=== PATIENT | female | born 1965 | race African-American/Black ===

== ENCOUNTER 2019-04-14 12:50 | Inpatient (IN) | payer MEDICARE, MEDICAID ==
[~2019-04-14] VITALS: Ht 182.9 cm; Wt 140.6 kg
[2019-04-14 08:00] VITALS: BP 93/49
[~2019-04-14 12:50] MED LIST: ATAZ300C PO; EMTR1TAB11 PO; FLUO40CA8 PO; HYDR-519 PO; RITO100T PO
[2019-04-14 21:00] VITALS: BP 120/70
[2019-04-14] MEDS ORDERED: CLONIDINE 0.1MG TABLET PO PRN (21:30)
[2019-04-14] MEDS ORDERED: NITROGLYCERIN 0.4MG TABLET SL SL PRN (21:30)
[2019-04-14] MEDS ORDERED: DOCUSATE SODIUM 100MG CAPSULE PO PRN (21:30)
[2019-04-14] MEDS ORDERED: ENOXAPARIN 40MG/0.4ML SYR SUBCUT SCH (21:30)
[2019-04-14] MEDS ORDERED: MAGNESIUM/ALUMINUM HYDROXIDE/SIMETHICONE 30ML UDC PO PRN (21:30)
[2019-04-14] MEDS ORDERED: IPRATROPIUM/ALBUTEROL 0.5-3(2.5)MG/3ML NEB NEB PRN (21:30)
[2019-04-14] MEDS ORDERED: ZOLPIDEM TARTRATE 5MG TABLET PO PRN (21:30)
[2019-04-14] MEDS ORDERED: DIPHENHYDRAMINE 50MG/ML VIAL IV PRN (21:30)
[2019-04-14] MEDS ORDERED: ONDANSETRON HCL 4MG/2ML INJ IV PRN (21:30)
[2019-04-14] MEDS ORDERED: GUAIFENESIN 200MG/10ML SUGAR FREE UDC PO PRN (21:30)
[2019-04-14] MEDS ORDERED: AMIN30LI2 PO (21:38)
[2019-04-14] MEDS ORDERED: GABA-529 MT (21:38)
[2019-04-14] MEDS ORDERED: DOCU-138 PO (21:38)
[2019-04-14] MEDS ORDERED: METH10OR PO (21:38)
[2019-04-14] MEDS ORDERED: SULF1TAB47 PO (21:38)
[2019-04-14] MEDS ORDERED: TIZA4CAP6 MT (21:38)
[2019-04-14] MEDS ORDERED: SENN-170 MT (21:38)
[2019-04-14] MEDS ORDERED: FURO20TA4 MT (21:38)
[2019-04-14] MEDS ORDERED: ASCO-339 MT (21:38)
[2019-04-14] MEDS ORDERED: TOPUD MT (21:38)
[2019-04-14] MEDS ORDERED: MULT-379 PO (21:38)
[2019-04-14] MEDS ORDERED: CITA10SO PO (21:38)
[2019-04-14] MEDS ORDERED: B25 PO (21:38)
[2019-04-14] MEDS: TRAMADOL 50MG TABLET PO PRN (23:39)
[2019-04-15] VITALS: BP 94/58
[2019-04-15] MEDS: HYDROCODONE/ACETAMINOPHEN 10/325MG TABLET PO PRN ×3 (01:13→17:57)
[2019-04-15 04:00] VITALS: BP 129/86
[2019-04-15] MEDS: TRAMADOL 50MG TABLET PO PRN ×2 (06:09→22:49)
[2019-04-15 07:11] LABS: BASOPHILS % 0.4 % (0.0-2.0); HEMATOCRIT. 28.3 % (36.0-48.0); HEMOGLOBIN. 8.9 g/dL (12.0-16.0); LYMPHOCYTES % 9.2 % (20.0-50.0); MEAN CORPUSCULAR HEMOGLOBIN 28.8 pg (28.0-32.0); MEAN CORPUSCULAR VOLUME 91.4 fL (81.0-99.0); MEAN PLATELET VOLUME 7.7 fl (7.4-10.4); MONOCYTES % 7.3 % (2.0-8.0); NEUTROPHILS % 82.1 % (40.0-76.0); PLATELET 427 x1000/uL (130-400)
[2019-04-15 07:25] LABS: CHLORIDE 117 mEq/L (98-107)
[2019-04-15 08:00] VITALS: BP 98/50
[2019-04-15] MEDS: FAMOTIDINE 20MG TABLET PO SCH ×2 (08:23→21:58)
[2019-04-15] MEDS: ASCORBIC ACID 500 MG TABLET PO SCH ×2 (08:23→21:58)
[2019-04-15] MEDS: FLUOXETINE HCL 20MG CAPSULE PO SCH (08:23)
[2019-04-15] MEDS: RITONAVIR 100 MG TABLET PO SCH (08:24)
[2019-04-15] MEDS: ZINC SULFATE 220 MG ( 50 ) CAPSULE PO SCH (08:24)
[2019-04-15] MEDS: EMTRICITABINE 200MG CAPSULE PO SCH (08:24)
[2019-04-15] MEDS: TENOFOVIR 300MG TABLET PO SCH (08:24)
[2019-04-15] MEDS: ATAZANAVIR SULFATE 150MG CAPSULE PO SCH (08:24)
[2019-04-15] MEDS: ENOXAPARIN 40MG/0.4ML SYR SUBCUT SCH ×2 (10:00→21:00)
[2019-04-15] MEDS ORDERED: CEFEPIME 1,000 MG in DEXTROSE 5% WATER 50 ML IV SCH (11:00)
[2019-04-15] MEDS ORDERED: LINEZOLID 600 MG PREMIX 300 ML IV SCH (11:00)
[2019-04-15 11:08] LABS: *AMPHETAMINES SCREEN URINE NEGATIVE (NEGATIVE); *BARBITURATES SCREEN URINE NEGATIVE (NEGATIVE); *BENZODIAZEPINES SCREEN URINE NEGATIVE (NEGATIVE); *COCAINE SCREEN URINE PRESUMTIVE POSITIVE (NEGATIVE); OPIATES URINE SCREEN PRESUMTIVE POSITIVE (NEGATIVE)
[2019-04-15 11:09] LABS: CANNABINOID URINE SCREEN PRESUMTIVE POSITIVE (NEGATIVE); PHENCYCLIDINE URINE SCREEN NEGATIVE (NEGATIVE)
[2019-04-15 11:14] LABS: METHADONE URINE SCREEN PRESUMTIVE POSITIVE (NEGATIVE)
[2019-04-15 11:43] LABS: CLARITY URINE CLOUDY (CLEAR); COLOR URINE YELLOW (YELLOW); KETONES URINE NEGATIVE (NEGATIVE); LEUKOCYTE ESTERASE URINE 1+ (NEGATIVE); NITRITE URINE NEGATIVE (NEGATIVE); OCCULT BLOOD URINE 2+ (NEGATIVE); PH URINE 6.5 (4.5-8.0); PROTEIN URINE 1+ (NEGATIVE); SPECIFIC GRAVITY URINE 1.018 (1.005-1.030); UROBILINOGEN URINE 0.2 E.U./dL (0.2-1.0)
[2019-04-15 12:00] VITALS: BP 112/54
[2019-04-15] MEDS ORDERED: METRONIDAZOLE 500 MG PREMIX 100 ML IV SCH ×2 (14:00→19:00)
[2019-04-15 16:00] VITALS: BP 141/71
[2019-04-15] MEDS: CEFEPIME 1,000 MG in DEXTROSE 5% WATER 50 ML IV SCH (16:00)
[2019-04-15] MEDS: ACETAMINOPHEN 325MG TABLET PO PRN (16:35)
[2019-04-15] MEDS ORDERED: SODIUM HYPOCHLORITE 0.125% 473ML SOLUTION TOP SCH (17:00)
[2019-04-15] MEDS: LINEZOLID 600 MG PREMIX 300 ML IV SCH (17:56)
[2019-04-15] MEDS: MORPHINE SULFATE 2 MG/ML CPJ (NOT FOR IM USE) IV PRN (18:33)
[2019-04-15 19:06] LABS: T4 FREE 0.87 ng/dL (0.76-1.46)
[2019-04-15 20:00] VITALS: BP 139/78
[2019-04-15] MEDS: METRONIDAZOLE 500 MG PREMIX 100 ML IV SCH (21:58)
[2019-04-15] MEDS: SODIUM HYPOCHLORITE 0.125% 473ML SOLUTION TOP SCH (21:58)
[2019-04-16] VITALS: BP 132/73
[2019-04-16] MEDS: MORPHINE SULFATE 2 MG/ML CPJ (NOT FOR IM USE) IV PRN ×4 (01:24→21:33)
[2019-04-16 04:00] VITALS: BP 130/70
[2019-04-16] MEDS: CEFEPIME 1,000 MG in DEXTROSE 5% WATER 50 ML IV SCH ×2 (04:00→16:25)
[2019-04-16] MEDS: LINEZOLID 600 MG PREMIX 300 ML IV SCH ×2 (05:00→18:13)
[2019-04-16] MEDS: METRONIDAZOLE 500 MG PREMIX 100 ML IV SCH ×3 (05:13→21:34)
[2019-04-16 08:00] VITALS: BP 105/76
[2019-04-16] MEDS ORDERED: SODIUM BICARBONATE 4% (2.4MEQ) 5ML VIAL IV ONE (08:07)
[2019-04-16] MEDS ORDERED: LIDOCAINE HCL 1% 20ML VIAL (Pyxis) INJ ONE (08:07)
[2019-04-16] MEDS: TENOFOVIR 300MG TABLET PO SCH (09:00)
[2019-04-16] MEDS: ENOXAPARIN 40MG/0.4ML SYR SUBCUT SCH ×3 (09:00→20:43)
[2019-04-16] MEDS: ZINC SULFATE 220 MG ( 50 ) CAPSULE PO SCH (10:18)
[2019-04-16] MEDS: ASCORBIC ACID 500 MG TABLET PO SCH ×2 (10:18→20:46)
[2019-04-16] MEDS: EMTRICITABINE 200MG CAPSULE PO SCH (10:19)
[2019-04-16] MEDS: FLUOXETINE HCL 20MG CAPSULE PO SCH (10:19)
[2019-04-16] MEDS: FAMOTIDINE 20MG TABLET PO SCH ×2 (10:20→20:46)
[2019-04-16] MEDS: RITONAVIR 100 MG TABLET PO SCH (10:24)
[2019-04-16] MEDS: ATAZANAVIR SULFATE 150MG CAPSULE PO SCH (10:24)
[2019-04-16 12:00] VITALS: BP 106/63
[2019-04-16] MEDS: SODIUM HYPOCHLORITE 0.125% 473ML SOLUTION TOP SCH ×3 (12:51→20:44)
[2019-04-16 16:00] VITALS: BP 116/84
[2019-04-16 20:00] VITALS: BP 108/62
[2019-04-16] MEDS: ACETAMINOPHEN 325MG TABLET PO PRN (20:45)
[2019-04-17] VITALS: BP 98/66
[2019-04-17] MEDS: CEFEPIME 1,000 MG in DEXTROSE 5% WATER 50 ML IV SCH ×2 (03:41→16:50)
[2019-04-17 04:00] VITALS: BP 121/87
[2019-04-17] MEDS: LINEZOLID 600 MG PREMIX 300 ML IV SCH ×2 (04:35→16:50)
[2019-04-17] MEDS: MORPHINE SULFATE 2 MG/ML CPJ (NOT FOR IM USE) IV PRN ×3 (05:53→18:43)
[2019-04-17] MEDS: METRONIDAZOLE 500 MG PREMIX 100 ML IV SCH ×3 (06:33→22:30)
[2019-04-17 08:00] VITALS: BP 111/75
[2019-04-17] MEDS: ZINC SULFATE 220 MG ( 50 ) CAPSULE PO SCH (08:37)
[2019-04-17] MEDS: FLUOXETINE HCL 20MG CAPSULE PO SCH (08:37)
[2019-04-17] MEDS: ASCORBIC ACID 500 MG TABLET PO SCH ×2 (08:37→22:28)
[2019-04-17] MEDS: ATAZANAVIR SULFATE 150MG CAPSULE PO SCH (08:38)
[2019-04-17] MEDS: EMTRICITABINE 200MG CAPSULE PO SCH (08:38)
[2019-04-17] MEDS: FAMOTIDINE 20MG TABLET PO SCH ×2 (08:38→22:29)
[2019-04-17] MEDS: RITONAVIR 100 MG TABLET PO SCH (08:38)
[2019-04-17] MEDS: TENOFOVIR 300MG TABLET PO SCH (08:40)
[2019-04-17] MEDS: ENOXAPARIN 40MG/0.4ML SYR SUBCUT SCH ×2 (08:40→22:30)
[2019-04-17] MEDS: SODIUM HYPOCHLORITE 0.125% 473ML SOLUTION TOP SCH ×3 (08:40→23:21)
[2019-04-17] MEDS ORDERED: BUPIVACAINE HCL/PF 0.5% (5MG/ML) 10ML ONE (10:59)
[2019-04-17] MEDS ORDERED: BACITRACIN 50,000 UNITS/VIAL ONE (10:59)
[2019-04-17] MEDS ORDERED: NORMAL SALINE 0.9% 10 ML SYR ONE (10:59)
[2019-04-17] MEDS ORDERED: LIDOCAINE HCL 1% 20ML VIAL (Pyxis) INJ ONE ×2 (10:59→11:25)
[2019-04-17] MEDS ORDERED: FENTANYL CITRATE/PF 50MCG/ML 2ML VIAL ONE ×3 (11:09→12:25)
[2019-04-17] MEDS ORDERED: MIDAZOLAM HCL 2 MG/2 ML VIAL ONE (11:10)
[2019-04-17] MEDS ORDERED: ROPIVACAINE HCL 10MG/ML 20 ML VIAL EPI ONE (11:24)
[2019-04-17] MEDS ORDERED: CLINDAMYCIN 900 MG PREMIX 50 ML IV SCH (11:45)
[2019-04-17 12:00] VITALS: BP 120/69
[2019-04-17] MEDS ORDERED: PROPOFOL 200MG/20ML VIAL IV ONE (12:16)
[2019-04-17] MEDS: HYDROMORPHONE HCL/PF 2MG/ML CPJ IV PRN ×4 (13:21→13:51)
[2019-04-17] MEDS ORDERED: HYDROMORPHONE HCL/PF 2MG/ML CPJ ONE (13:21)
[2019-04-17] MEDS ORDERED: DIPHENHYDRAMINE 50MG/ML VIAL ONE (13:29)
[2019-04-17] MEDS ORDERED: ONDANSETRON HCL 4MG/2ML INJ IV PRN (13:30)
[2019-04-17] MEDS ORDERED: MEPERIDINE HCL/PF 25MG/ML CPJ IV PRN (13:30)
[2019-04-17] MEDS ORDERED: METOCLOPRAMIDE HCL 10MG/2ML VIAL IV PRN (13:30)
[2019-04-17] MEDS ORDERED: DIPHENHYDRAMINE 50MG/ML VIAL IV ONE (13:30)
[2019-04-17] MEDS: LORAZEPAM 0.5MG TABLET PO PRN (14:55)
[2019-04-17 16:00] VITALS: BP 108/70
[2019-04-17 20:00] VITALS: BP 108/63
[2019-04-18] VITALS: BP 102/57
[2019-04-18 04:00] VITALS: BP 97/61
[2019-04-18] MEDS: CEFEPIME 1,000 MG in DEXTROSE 5% WATER 50 ML IV SCH (04:06)
[2019-04-18] MEDS: LINEZOLID 600 MG PREMIX 300 ML IV SCH (06:08)
[2019-04-18] MEDS: METRONIDAZOLE 500 MG PREMIX 100 ML IV SCH (06:42)
[2019-04-18] MEDS: ENOXAPARIN 40MG/0.4ML SYR SUBCUT SCH ×2 (09:00→20:59)
[2019-04-18] MEDS: SODIUM HYPOCHLORITE 0.125% 473ML SOLUTION TOP SCH ×3 (09:00→21:08)
[2019-04-18] MEDS: TENOFOVIR 300MG TABLET PO SCH (09:00)
[2019-04-18 09:06] LABS: ABSOLUTE EOSINOPHILS 0.4 x10E3/uL (0.0-0.4); ABSOLUTE LYMPHOCYTES 1.1 x10E3/uL (0.7-3.1); ABSOLUTE MONOCYTES 0.8 x10E3/uL (0.1-0.9); ABSOLUTE NEUTROPHILS 3.8 x10E3/uL (1.4-7.0); BASOPHILS 0 % (Not Estab.); HEMATOCRIT 30.3 % (34.0-46.6); IMMATURE GRANULOCYTES 0 % (Not Estab.); LYMPHOCYTES 19 % (Not Estab.); MEAN CORPUSCULAR HEMOGLOBIN 26.9 pg (26.6-33.0); MEAN CORPUSCULAR HGB CONC. 29.7 g/dL (31.5-35.7); MEAN CORPUSCULAR VOLUME 90 fL (79-97); MONOCYTES 13 % (Not Estab.); NEUTROPHILS 62 % (Not Estab.); PLATELETS 417 x10E3/uL (150-450); RBC 3.35 x10E6/uL (3.77-5.28); RED CELL DISTRIBUTION WIDTH 16.2 % (12.3-15.4)
[2019-04-18] MEDS: MORPHINE SULFATE 2 MG/ML CPJ (NOT FOR IM USE) IV PRN ×4 (09:24→23:35)
[2019-04-18 10:08] LABS: % CD 3 POS. LYMPHOCYTES 70.5 % (57.5-86.2); % CD 4 POS. LYMPHOCYTES 34.3 % (30.8-58.5); % CD 8 POS. LYMPH 34.9 % (12.0-35.5); ABSOLUTE CD 3 776 /uL (622-2402); ABSOLUTE CD 4 HELPER 377 /uL (359-1519); ABSOLUTE CD 8 SUPPRESSOR 384 /uL (109-897); CD4/CD8 RATIO 0.98 (0.92-3.72)
[2019-04-18] MEDS: EMTRICITABINE 200MG CAPSULE PO SCH (10:09)
[2019-04-18] MEDS: ATAZANAVIR SULFATE 150MG CAPSULE PO SCH (10:09)
[2019-04-18] MEDS: FLUOXETINE HCL 20MG CAPSULE PO SCH (10:10)
[2019-04-18] MEDS: ZINC SULFATE 220 MG ( 50 ) CAPSULE PO SCH (10:10)
[2019-04-18] MEDS: FAMOTIDINE 20MG TABLET PO SCH ×2 (10:10→20:58)
[2019-04-18] MEDS: ASCORBIC ACID 500 MG TABLET PO SCH ×2 (10:10→20:58)
[2019-04-18] MEDS: RITONAVIR 100 MG TABLET PO SCH (10:10)
[2019-04-18] MEDS: TRAMADOL 50MG TABLET PO PRN (11:22)
[2019-04-18] MEDS ORDERED: IOHEXOL-350 100 ML BOTTLE ONE (15:23)
[2019-04-18] MEDS: MEROPENEM 1,000 MG in SODIUM CHLORIDE 0.9% 100 ML IV SCH (17:04)
[2019-04-18 20:00] VITALS: BP 107/55
[2019-04-19] VITALS: BP 105/67
[2019-04-19 04:00] VITALS: BP 99/58
[2019-04-19] MEDS: MORPHINE SULFATE 2 MG/ML CPJ (NOT FOR IM USE) IV PRN ×3 (04:40→14:19)
[2019-04-19] MEDS: MEROPENEM 1,000 MG in SODIUM CHLORIDE 0.9% 100 ML IV SCH (05:02)
[2019-04-19 08:00] VITALS: BP 123/75
[2019-04-19] MEDS: SODIUM HYPOCHLORITE 0.125% 473ML SOLUTION TOP SCH ×2 (09:00→14:20)
[2019-04-19] MEDS: TENOFOVIR 300MG TABLET PO SCH (09:00)
[2019-04-19] MEDS: RITONAVIR 100 MG TABLET PO SCH (10:07)
[2019-04-19] MEDS: ENOXAPARIN 40MG/0.4ML SYR SUBCUT SCH (10:07)
[2019-04-19] MEDS: ATAZANAVIR SULFATE 150MG CAPSULE PO SCH (10:07)
[2019-04-19] MEDS: FLUOXETINE HCL 20MG CAPSULE PO SCH (10:08)
[2019-04-19] MEDS: EMTRICITABINE 200MG CAPSULE PO SCH (10:08)
[2019-04-19] MEDS: FAMOTIDINE 20MG TABLET PO SCH (10:08)
[2019-04-19] MEDS: ASCORBIC ACID 500 MG TABLET PO SCH (10:08)
[2019-04-19] MEDS: LORAZEPAM 0.5MG TABLET PO PRN (10:08)
[2019-04-19] MEDS: ZINC SULFATE 220 MG ( 50 ) CAPSULE PO SCH (10:08)
[2019-04-19 11:25] VITALS: BP 121/84
[2019-04-19 12:00] VITALS: BP 112/84
[2019-04-19 14:19] VITALS: BP 121/84
== END 2019-04-19 16:30 | DRG 40 ==
LOC: 6EST 12:50
PROVIDERS: ADMIT Internal Medicine; ATTEND Internal Medicine
PROC: 02HV33Z Insertion of Infusion Device into Superior Vena Cava, Percutaneous Approach (ICD-10-PCS; principal; 2019-04-16)
PROC: B5181ZA Fluoroscopy of Superior Vena Cava using Low Osmolar Contrast, Guidance (ICD-10-PCS; 2019-04-16)
PROC: B548ZZA Ultrasonography of Superior Vena Cava, Guidance (ICD-10-PCS; 2019-04-16)
PROC: 0JBP0ZZ Excision of Left Lower Leg Subcutaneous Tissue and Fascia, Open Approach (ICD-10-PCS; 2019-04-17)
PROC: 0JBN0ZZ Excision of Right Lower Leg Subcutaneous Tissue and Fascia, Open Approach (ICD-10-PCS; 2019-04-17)
DX: G92 Toxic encephalopathy (principal); E43 Unspecified severe protein-calorie malnutrition; L03.115 Cellulitis of right lower limb; L97.909 Non-pressure chronic ulcer of unspecified part of unspecified lower leg with unspecified severity; E87.2 Acidosis; N39.0 Urinary tract infection, site not specified; L97.929 Non-pressure chronic ulcer of unspecified part of left lower leg with unspecified severity; L97.919 Non-pressure chronic ulcer of unspecified part of right lower leg with unspecified severity; L03.116 Cellulitis of left lower limb; Z16.12 Extended spectrum beta lactamase (ESBL) resistance; Z68.41 Body mass index [BMI] 40.0-44.9, adult; E83.51 Hypocalcemia; E66.01 Morbid (severe) obesity due to excess calories; D63.8 Anemia in other chronic diseases classified elsewhere; I83.009 Varicose veins of unspecified lower extremity with ulcer of unspecified site; I87.2 Venous insufficiency (chronic) (peripheral); I73.9 Peripheral vascular disease, unspecified; N18.9 Chronic kidney disease, unspecified; I12.9 Hypertensive chronic kidney disease with stage 1 through stage 4 chronic kidney disease, or unspecified chronic kidney disease; J44.9 Chronic obstructive pulmonary disease, unspecified; F19.10 Other psychoactive substance abuse, uncomplicated; J45.909 Unspecified asthma, uncomplicated; F41.9 Anxiety disorder, unspecified; F14.10 Cocaine abuse, uncomplicated; F12.10 Cannabis abuse, uncomplicated; B96.5 Pseudomonas (aeruginosa) (mallei) (pseudomallei) as the cause of diseases classified elsewhere; B96.1 Klebsiella pneumoniae [K. pneumoniae] as the cause of diseases classified elsewhere; Z86.718 Personal history of other venous thrombosis and embolism; Z86.711 Personal history of pulmonary embolism; Z72.0 Tobacco use; Z88.8 Allergy status to other drugs, medicaments and biological substances; Z90.49 Acquired absence of other specified parts of digestive tract; Z71.6 Tobacco abuse counseling; Z79.899 Other long term (current) drug therapy; Z71.51 Drug abuse counseling and surveillance of drug abuser
CPT/HCPCS: 36415; 36573; 76937; 80305; 81003; 82607; 82746; 83036; 83540; 83550; 83605; 83880; 84134; 84439; 84443; 86359; 86360; 87070; 87075; 87077; 87186; 93306; 93923; 93970; 97530; 97535; C1725; J0692; J1170; J1200; J1650; J2020; J2185; J2250; J2270; J2405; J2704; J2795; J3010; J3490; J7050; J7060; Q9967

== ENCOUNTER 2021-06-01 12:46 | Inpatient (IN) | payer MEDICARE, MEDICAID ==
[~2021-06-01] VITALS: Ht 182.9 cm; Wt 124.8 kg
[~2021-06-01 12:46] MED LIST changes: +AMIN30LI2 PO; +ASCO-339 MT; +B25 PO; +CITA10SO PO; +DOCU-138 PO; +FURO20TA4 MT; +GABA-529 MT; +METH10OR PO; +MULT-379 PO; +SENN-257 MT; +SULF1TAB47 PO; +TIZA4CAP6 MT; +TOPUD MT
[2021-06-01] MEDS ORDERED: KETOROLAC 30MG/ML VIAL IV STA (13:28)
[2021-06-01] MEDS ORDERED: SODIUM CHLORIDE 0.9% 1,000 ML IV ONE (13:30)
[2021-06-01] MEDS ORDERED: VANCOMYCIN 1 G PREMIX 200 ML IV SCH (14:00)
[2021-06-01] MEDS ORDERED: CEFEPIME HCL 1000MG/VIAL INJ IM ONE (14:00)
[2021-06-01 14:53] LABS: BASOPHILS % 0.2 % (0.0-2.0); EOSINOPHILS % 0.2 % (0.0-5.0); HEMATOCRIT. 33.8 % (36.0-48.0); HEMOGLOBIN. 10.7 g/dL (12.0-16.0); LYMPHOCYTES % 8.4 % (20.0-50.0); MEAN CORPUSCULAR HEMOGLOBIN 27.1 pg (28.0-32.0); MEAN CORPUSCULAR VOLUME 85.9 fL (81.0-99.0); MEAN PLATELET VOLUME 8.5 fl (7.4-10.4); MONOCYTES % 5.5 % (2.0-8.0); NEUTROPHILS % 85.7 % (40.0-76.0); PLATELET 334 x1000/uL (130-400); RED BLOOD CELL COUNT 3.93 mill/uL (4.2-5.4); RED CELL DISTRIBUTION WIDTH 17.8 % (11.6-14.6)
[2021-06-01 14:54] LABS: CHLORIDE 112 mEq/L (98-107)
[2021-06-01] MEDS ORDERED: CLONIDINE 0.1MG TABLET PO PRN (16:30)
[2021-06-01] MEDS ORDERED: IPRATROPIUM/ALBUTEROL 0.5-3(2.5)MG/3ML NEB HHN PRN (16:30)
[2021-06-01] MEDS ORDERED: SODIUM CHLORIDE 0.9% 1000ML BAG (SEPSIS BOLUS) IV ONE (16:30)
[2021-06-01] MEDS ORDERED: NALOXONE HCL 0.4MG/ML VIAL IV PRN (16:30)
[2021-06-01] MEDS ORDERED: VANCOMYCIN 1 G PREMIX 200 ML IV NR (17:00)
[2021-06-01] MEDS: MORPHINE SULFATE 2 MG/ML CPJ (NOT FOR IM USE) IV PRN (23:53)
[2021-06-01] MEDS: ONDANSETRON HCL 4MG/2ML INJ IV PRN (23:53)
[2021-06-02] VITALS (44 sets, daily range): BP systolic 64–130; BP diastolic 26–80
[2021-06-02] MEDS ORDERED: GABA-290 PO (03:36)
[2021-06-02] MEDS ORDERED: BACL-141 PO (03:36)
[2021-06-02] MEDS ORDERED: PENT400T16 PO ×2 (03:36→17:22)
[2021-06-02] MEDS ORDERED: ALBUMIN HUMAN 25GM/100ML (25%) IV ONE (04:45)
[2021-06-02] MEDS ORDERED: DEXTROSE 50% WATER 50ML SYRINGE IV ONE ×2 (04:52→07:00)
[2021-06-02 05:28] LABS: BG BASE EXCESS -21.5 mmol/L (-2.0-2.0); BG CARBOXYHEMOGLOBIN 0.2 % (0.5-1.5); BG DEOXYHEMOGLOBIN 3.5 % (0.0-5.0); BG FRACTION INSPIRED OXYGEN 21; BG HCO3 ACT 6.6 mmol/L (22.0-26.0); BG METHEMOGLOBIN 0.3 % (0.0-1.5); BG OXYGEN SATURATION 96.5 % (92.0-98.5); BG PCO2 22.1 mmHg (35.0-45.0); BG SAMPLE SITE LEFT RADIAL; BG TOTAL HEMOGLOBIN 9.3 g/dL (12.0-18.0); BG VENT MODE ROOM AIR
[2021-06-02 06:28] LABS: CHLORIDE 118 mEq/L (98-107)
[2021-06-02 06:36] LABS: CREATINE KINASE 377 IU/L (26-192)
[2021-06-02 07:04] LABS: BASOPHILS % 0.2 % (0.0-2.0); EOSINOPHILS % 1.1 % (0.0-5.0); HEMATOCRIT. 34.5 % (36.0-48.0); HEMOGLOBIN. 10.2 g/dL (12.0-16.0); LYMPHOCYTES % 7.7 % (20.0-50.0); MEAN CORPUSCULAR HEMOGLOBIN 27.6 pg (28.0-32.0); MEAN CORPUSCULAR VOLUME 93.5 fL (81.0-99.0); MEAN PLATELET VOLUME 8.6 fl (7.4-10.4); MONOCYTES % 9.8 % (2.0-8.0); NEUTROPHILS % 81.2 % (40.0-76.0); PLATELET 250 x1000/uL (130-400); RED CELL DISTRIBUTION WIDTH 18.5 % (11.6-14.6)
[2021-06-02 07:14] LABS: CHLORIDE 118 mEq/L (98-107)
[2021-06-02] MEDS: SODIUM BICARBONATE 150 MEQ in DEXTROSE 5% WATER 1,000 ML IV SCH ×2 (08:10→20:03)
[2021-06-02] MEDS ORDERED: DEXTROSE 50% WATER 50ML SYRINGE IV PRN (10:00)
[2021-06-02] MEDS ORDERED: RITONAVIR 100 MG TABLET PO SCH (11:45)
[2021-06-02] MEDS ORDERED: ATAZANAVIR SULFATE 150MG CAPSULE PO SCH (11:45)
[2021-06-02] MEDS ORDERED: METHADONE HCL 10MG TABLET PO SCH (11:45)
[2021-06-02] MEDS ORDERED: NON FORMULARY PATIENT HOME MED XX SCH (11:45)
[2021-06-02] MEDS ORDERED: LACTULOSE 20G/30ML UDC PO NR (12:00)
[2021-06-02] MEDS ORDERED: DEXT 10% WATER 1,000 ML IV SCH ×2 (12:45→13:00)
[2021-06-02] MEDS: MORPHINE SULFATE 2 MG/ML CPJ (NOT FOR IM USE) IV PRN ×2 (13:27→22:14)
[2021-06-02] MEDS: MULTIVITAMINS,THER W-MINERALS TABLET PO SCH (13:27)
[2021-06-02] MEDS ORDERED: PIPERACILLIN/TAZOBACTAM 3.375 G in DEXTROSE 5% WATER 50 ML IV SCH (14:00)
[2021-06-02] MEDS ORDERED: LACTULOSE 20G/30ML UDC PO SCH (14:00)
[2021-06-02 16:03] LABS: CLARITY URINE TURBID (CLEAR); COLOR URINE RED (YELLOW); KETONES URINE NEGATIVE (NEGATIVE); LEUKOCYTE ESTERASE URINE 3+ (NEGATIVE); NITRITE URINE NEGATIVE (NEGATIVE); OCCULT BLOOD URINE 3+ (NEGATIVE); PH URINE 5.5 (4.5-8.0); PROTEIN URINE 2+ (NEGATIVE); SPECIFIC GRAVITY URINE 1.014 (1.005-1.030); UROBILINOGEN URINE 0.2 E.U./dL (0.2-1.0)
[2021-06-02] MEDS ORDERED: EMTR1TAB11 PO (17:22)
[2021-06-02] MEDS ORDERED: ATAZ300C PO (17:22)
[2021-06-02] MEDS ORDERED: RITO100T PO (17:22)
[2021-06-02] MEDS ORDERED: ENOXAPARIN 120MG/0.8ML SYR SUBCUT NR (17:45)
[2021-06-02 18:58] LABS: PHOSPHORUS 4.9 mg/dL (2.5-4.9)
[2021-06-02 19:14] LABS: FOLIC ACID (FOLATE) SERUM 7.7 ng/mL (>5.38)
[2021-06-02] MEDS: RIFAXIMIN 550 MG TABLET PO SCH (20:04)
[2021-06-02] MEDS: PENTOXIFYLLINE 400MG TABLET PO SCH (20:04)
[2021-06-02 20:16] LABS: HEPATITIS B SURFACE ANTIGEN NEGATIVE
[2021-06-02] MEDS ORDERED: VANCOMYCIN 750 MG PREMIX 150 ML IV SCH (21:00)
[2021-06-03] VITALS (94 sets, daily range): BP systolic 47–173; BP diastolic 25–141
[2021-06-03] MEDS: NOREPINEPHRINE 8 MG in DEXT 5% WATER 242 ML IV PRN ×2 (00:52→22:33)
[2021-06-03] MEDS: BLOOD SUGAR DIAGNOSTIC STRIP TEST SCH ×6 (00:53→20:00)
[2021-06-03] MEDS: MORPHINE SULFATE 2 MG/ML CPJ (NOT FOR IM USE) IV PRN ×4 (03:33→23:56)
[2021-06-03] MEDS: SODIUM BICARBONATE 150 MEQ in DEXTROSE 5% WATER 1,000 ML IV SCH ×3 (04:19→22:32)
[2021-06-03] MEDS: PENTOXIFYLLINE 400MG TABLET PO SCH (08:32)
[2021-06-03] MEDS: RIFAXIMIN 550 MG TABLET PO SCH ×2 (08:32→20:36)
[2021-06-03] MEDS: MULTIVITAMINS,THER W-MINERALS TABLET PO SCH (08:32)
[2021-06-03] MEDS: SODIUM HYPOCHLORITE 0.125% 473ML SOLUTION TOP SCH (08:33)
[2021-06-03 08:43] LABS: BG BASE EXCESS -7.8 mmol/L (-2.0-2.0); BG CARBOXYHEMOGLOBIN 0.3 % (0.5-1.5); BG DEOXYHEMOGLOBIN 4.1 % (0.0-5.0); BG FRACTION INSPIRED OXYGEN 21; BG HCO3 ACT 17.7 mmol/L (22.0-26.0); BG METHEMOGLOBIN 0.3 % (0.0-1.5); BG OXYGEN SATURATION 95.9 % (92.0-98.5); BG OXYHEMOGLOBIN 95.3 % (94.0-97.0); BG PCO2 35.8 mmHg (35.0-45.0); BG PH 7.312 (7.350-7.450); BG PO2 98.7 mmHg (75.0-100.0); BG SAMPLE SITE LEFT RADIAL; BG TOTAL HEMOGLOBIN 9.6 g/dL (12.0-18.0); BG VENT MODE ROOM AIR
[2021-06-03] MEDS ORDERED: CITALOPRAM HYDROBROMIDE 10MG TABLET PO SCH (09:00)
[2021-06-03 09:16] LABS: BASOPHILS % 0.3 % (0.0-2.0); EOSINOPHILS % 2.2 % (0.0-5.0); HEMATOCRIT. 31.7 % (36.0-48.0); HEMOGLOBIN. 9.7 g/dL (12.0-16.0); LYMPHOCYTES % 7.3 % (20.0-50.0); MEAN CORPUSCULAR HEMOGLOBIN 27.8 pg (28.0-32.0); MEAN CORPUSCULAR VOLUME 90.7 fL (81.0-99.0); MEAN PLATELET VOLUME 8.6 fl (7.4-10.4); NEUTROPHILS % 81.2 % (40.0-76.0); PLATELET 238 x1000/uL (130-400); RED BLOOD CELL COUNT 3.49 mill/uL (4.2-5.4); RED CELL DISTRIBUTION WIDTH 18.7 % (11.6-14.6)
[2021-06-03] MEDS: HYDROCODONE/APAP 7.5/325MG 1 TAB TABLET PO PRN ×2 (10:26→20:36)
[2021-06-03] MEDS: ENOXAPARIN 120MG/0.8ML SYR SUBCUT SCH (12:44)
[2021-06-03] MEDS ORDERED: POTASSIUM CHLORIDE 20MEQ/PACKET PO NR (13:00)
[2021-06-03] MEDS: LACTULOSE 20G/30ML UDC PO SCH (16:50)
[2021-06-03] MEDS: MEROPENEM 1,000 MG in SODIUM CHLORIDE 0.9% 100 ML IV SCH (23:55)
[2021-06-04] VITALS (92 sets, daily range): BP systolic 73–134; BP diastolic 27–92
[2021-06-04] MEDS: MORPHINE SULFATE 2 MG/ML CPJ (NOT FOR IM USE) IV PRN ×3 (03:57→21:03)
[2021-06-04] MEDS: BLOOD SUGAR DIAGNOSTIC STRIP TEST SCH ×6 (04:00→21:49)
[2021-06-04 06:03] LABS: BASOPHILS % 0.5 % (0.0-2.0); EOSINOPHILS % 3.4 % (0.0-5.0); HEMATOCRIT. 26.8 % (36.0-48.0); LYMPHOCYTES % 11.3 % (20.0-50.0); MEAN CORPUSCULAR HEMOGLOBIN 27.8 pg (28.0-32.0); MEAN CORPUSCULAR VOLUME 82.9 fL (81.0-99.0); MEAN PLATELET VOLUME 9.2 fl (7.4-10.4); MONOCYTES % 11.1 % (2.0-8.0); NEUTROPHILS % 73.7 % (40.0-76.0); PLATELET 217 x1000/uL (130-400); RED BLOOD CELL COUNT 3.23 mill/uL (4.2-5.4); RED CELL DISTRIBUTION WIDTH 17.5 % (11.6-14.6)
[2021-06-04] MEDS ORDERED: POTASSIUM CHLORIDE INJ 40 MEQ in DEXT 5% WATER 250 ML IV ONE (07:45)
[2021-06-04 08:10] LABS: ANTI-NUCLEAR ANTIBODIES DIRECT Negative (Negative)
[2021-06-04 09:06] LABS: % CD 3 POS. LYMPHOCYTES 79.7 % (57.5-86.2); % CD 4 POS. LYMPHOCYTES 20.9 % (30.8-58.5); % CD 8 POS. LYMPH 57.7 % (12.0-35.5); ABSOLUTE CD 3 558 /uL (622-2402); ABSOLUTE CD 4 HELPER 146 /uL (359-1519); ABSOLUTE CD 8 SUPPRESSOR 404 /uL (109-897); ABSOLUTE EOSINOPHILS 0.2 x10E3/uL (0.0-0.4); ABSOLUTE LYMPHOCYTES 0.7 x10E3/uL (0.7-3.1); ABSOLUTE MONOCYTES 0.6 x10E3/uL (0.1-0.9); ABSOLUTE NEUTROPHILS 9.9 x10E3/uL (1.4-7.0); BASOPHILS 0 % (Not Estab.); CD4/CD8 RATIO 0.36 (0.92-3.72); HEMATOCRIT 26.5 % (34.0-46.6); HEMOGLOBIN 8.7 g/dL (11.1-15.9); IMMATURE GRANULOCYTES 1 % (Not Estab.); IMMATURE GRANULOCYTES ABSOLUTE 0.1 x10E3/uL (0.0-0.1); LYMPHOCYTES 6 % (Not Estab.); MEAN CORPUSCULAR HEMOGLOBIN 27.8 pg (26.6-33.0); MEAN CORPUSCULAR HGB CONC. 32.8 g/dL (31.5-35.7); MEAN CORPUSCULAR VOLUME 85 fL (79-97); MONOCYTES 5 % (Not Estab.); NEUTROPHILS 86 % (Not Estab.); PLATELETS 288 x10E3/uL (150-450); RBC 3.13 x10E6/uL (3.77-5.28); RED CELL DISTRIBUTION WIDTH 15.7 % (11.7-15.4); WBC 11.4 x10E3/uL (3.4-10.8)
[2021-06-04] MEDS: KCL 20MEQ/100ML PREMIX 100 ML IV SCH ×2 (09:44→12:41)
[2021-06-04] MEDS: MULTIVITAMINS,THER W-MINERALS TABLET PO SCH (09:44)
[2021-06-04] MEDS: LACTULOSE 20G/30ML UDC PO SCH ×2 (09:44→16:01)
[2021-06-04] MEDS: RIFAXIMIN 550 MG TABLET PO SCH ×2 (09:44→21:49)
[2021-06-04] MEDS: MEROPENEM 1,000 MG in SODIUM CHLORIDE 0.9% 100 ML IV SCH ×2 (09:44→21:49)
[2021-06-04] MEDS: PENTOXIFYLLINE 400MG TABLET PO SCH (09:44)
[2021-06-04] MEDS: SODIUM HYPOCHLORITE 0.125% 473ML SOLUTION TOP SCH (09:45)
[2021-06-04] MEDS: DEXT 5%/0.9% NACL 1,000 ML IV SCH ×2 (09:45→18:51)
[2021-06-04] MEDS: HYDROCODONE/APAP 7.5/325MG 1 TAB TABLET PO PRN (11:18)
[2021-06-04] MEDS: ENOXAPARIN 120MG/0.8ML SYR SUBCUT SCH (12:41)
[2021-06-04] MEDS ORDERED: LIDOCAINE HCL 2% JELLY 5ML TOP NR (14:00)
[2021-06-04] MEDS ORDERED: LIDOCAINE HCL 1% 20ML VIAL (Pyxis) INJ INFIL NR (14:00)
[2021-06-04 14:42] LABS: CLARITY URINE CLEAR (CLEAR); COLOR URINE YELLOW (YELLOW); KETONES URINE NEGATIVE (NEGATIVE); LEUKOCYTE ESTERASE URINE 3+ (NEGATIVE); NITRITE URINE NEGATIVE (NEGATIVE); OCCULT BLOOD URINE 3+ (NEGATIVE); PROTEIN URINE 1+ (NEGATIVE); SPECIFIC GRAVITY URINE 1.015 (1.005-1.030); UROBILINOGEN URINE 0.2 E.U./dL (0.2-1.0)
[2021-06-04] MEDS: PHENYLEPHRINE 100 MG in DEXT 5% WATER 240 ML IV PRN (15:25)
[2021-06-04 15:39] LABS: OPIATES URINE SCREEN PRESUMTIVE POSITIVE (NEGATIVE)
[2021-06-04 15:40] LABS: *AMPHETAMINES SCREEN URINE NEGATIVE (NEGATIVE); *BARBITURATES SCREEN URINE NEGATIVE (NEGATIVE); *BENZODIAZEPINES SCREEN URINE NEGATIVE (NEGATIVE); *COCAINE SCREEN URINE PRESUMTIVE POSITIVE (NEGATIVE); CANNABINOID URINE SCREEN NEGATIVE (NEGATIVE); METHADONE URINE SCREEN NEGATIVE (NEGATIVE); PHENCYCLIDINE URINE SCREEN NEGATIVE (NEGATIVE)
[2021-06-05] VITALS (66 sets, daily range): BP systolic 73–146; BP diastolic 31–95
[2021-06-05] MEDS: MORPHINE SULFATE 2 MG/ML CPJ (NOT FOR IM USE) IV PRN ×5 (01:28→20:20)
[2021-06-05 06:19] LABS: HEMATOCRIT. 24.1 % (36.0-48.0); HEMOGLOBIN. 8.1 g/dL (12.0-16.0); MEAN CORPUSCULAR VOLUME 83.8 fL (81.0-99.0); MEAN PLATELET VOLUME 8.3 fl (7.4-10.4); PLATELET 268 x1000/uL (130-400); RED BLOOD CELL COUNT 2.87 mill/uL (4.2-5.4); RED CELL DISTRIBUTION WIDTH 16.9 % (11.6-14.6)
[2021-06-05] MEDS: BLOOD SUGAR DIAGNOSTIC STRIP TEST SCH ×4 (06:21→21:24)
[2021-06-05] MEDS: DEXT 5%/0.9% NACL 1,000 ML IV SCH ×2 (06:29→14:04)
[2021-06-05 06:38] LABS: PHOSPHORUS 4.2 mg/dL (2.5-4.9)
[2021-06-05] MEDS ORDERED: POTASSIUM CHLORIDE 20MEQ/PACKET PO SCH ×2 (08:00→14:00)
[2021-06-05] MEDS: SODIUM HYPOCHLORITE 0.125% 473ML SOLUTION TOP SCH (08:39)
[2021-06-05] MEDS: HYDROCODONE/APAP 7.5/325MG 1 TAB TABLET PO PRN ×2 (09:05→16:23)
[2021-06-05] MEDS: LACTULOSE 20G/30ML UDC PO SCH ×2 (09:09→17:00)
[2021-06-05] MEDS: MEROPENEM 1,000 MG in SODIUM CHLORIDE 0.9% 100 ML IV SCH ×2 (09:09→21:25)
[2021-06-05] MEDS: RIFAXIMIN 550 MG TABLET PO SCH ×2 (09:10→21:25)
[2021-06-05] MEDS: MIDODRINE HCL 5MG TABLET PO SCH ×3 (09:10→17:41)
[2021-06-05] MEDS: MAGNESIUM OXIDE 400MG TABLET PO SCH (09:10)
[2021-06-05] MEDS: MULTIVITAMINS,THER W-MINERALS TABLET PO SCH (09:10)
[2021-06-05] MEDS: PENTOXIFYLLINE 400MG TABLET PO SCH (09:24)
[2021-06-05] MEDS: PHENYLEPHRINE 100 MG in DEXT 5% WATER 240 ML IV PRN (09:25)
[2021-06-05 09:56] LABS: PLATELET ESTIMATE NORMAL
[2021-06-05] MEDS ORDERED: ENOXAPARIN 120MG/0.8ML SYR SUBCUT SCH ×2 (12:00→22:00)
[2021-06-05] MEDS: ATOVAQUONE 750MG/5ML PACKET PO SCH (13:46)
[2021-06-06] VITALS (74 sets, daily range): BP systolic 83–145; BP diastolic 42–96
[2021-06-06] MEDS: HYDROCODONE/APAP 7.5/325MG 1 TAB TABLET PO PRN ×3 (00:16→16:18)
[2021-06-06] MEDS: DEXT 5%/0.9% NACL 1,000 ML IV SCH (00:17)
[2021-06-06] MEDS: MORPHINE SULFATE 2 MG/ML CPJ (NOT FOR IM USE) IV PRN ×4 (04:19→19:48)
[2021-06-06 05:21] LABS: HEMATOCRIT. 25.3 % (36.0-48.0); HEMOGLOBIN. 8.4 g/dL (12.0-16.0); MEAN CORPUSCULAR HEMOGLOBIN 27.8 pg (28.0-32.0); MEAN CORPUSCULAR VOLUME 83.6 fL (81.0-99.0); MEAN PLATELET VOLUME 7.6 fl (7.4-10.4); PLATELET 301 x1000/uL (130-400); RED BLOOD CELL COUNT 3.03 mill/uL (4.2-5.4); RED CELL DISTRIBUTION WIDTH 16.3 % (11.6-14.6)
[2021-06-06 05:33] LABS: PHOSPHORUS 2.9 mg/dL (2.5-4.9)
[2021-06-06] MEDS: BLOOD SUGAR DIAGNOSTIC STRIP TEST SCH ×4 (06:19→21:59)
[2021-06-06] MEDS: ATOVAQUONE 750MG/5ML PACKET PO SCH (06:31)
[2021-06-06 08:13] LABS: ATYPICAL LYMPHOCYTES 1; NUCLEATED RED BLOOD CELLS 1 /100 WBC
[2021-06-06 08:14] LABS: PLATELET ESTIMATE NORMAL
[2021-06-06] MEDS: RIFAXIMIN 550 MG TABLET PO SCH ×2 (08:19→22:04)
[2021-06-06] MEDS: MIDODRINE HCL 5MG TABLET PO SCH ×3 (08:20→16:16)
[2021-06-06] MEDS: MAGNESIUM OXIDE 400MG TABLET PO SCH (08:20)
[2021-06-06] MEDS: PENTOXIFYLLINE 400MG TABLET PO SCH (08:20)
[2021-06-06] MEDS: MEROPENEM 1,000 MG in SODIUM CHLORIDE 0.9% 100 ML IV SCH ×3 (08:20→22:05)
[2021-06-06] MEDS: ENOXAPARIN 40MG/0.4ML SYR SUBCUT SCH (08:21)
[2021-06-06] MEDS: LACTULOSE 20G/30ML UDC PO SCH ×2 (08:27→16:10)
[2021-06-06] MEDS: MULTIVITAMINS,THER W-MINERALS TABLET PO SCH (08:28)
[2021-06-06] MEDS: SODIUM HYPOCHLORITE 0.125% 473ML SOLUTION TOP SCH (08:50)
[2021-06-06] MEDS ORDERED: MAGNESIUM 2 G PREMIX 50 ML IV SCH (09:00)
[2021-06-06] MEDS ORDERED: MORPHINE SULFATE 2 MG/ML CPJ (NOT FOR IM USE) IV NR (09:15)
[2021-06-06] MEDS: ONDANSETRON HCL 4MG/2ML INJ IV PRN (09:52)
[2021-06-06] MEDS: PHENYLEPHRINE 100 MG in DEXT 5% WATER 240 ML IV PRN (09:53)
[2021-06-06] MEDS: DIPHENHYDRAMINE 50MG/ML VIAL IV PRN ×2 (17:48→22:06)
[2021-06-07] VITALS (34 sets, daily range): BP systolic 31–145; BP diastolic 17–97
[2021-06-07] MEDS: MORPHINE SULFATE 2 MG/ML CPJ (NOT FOR IM USE) IV PRN ×3 (00:53→08:01)
[2021-06-07 05:42] LABS: BASOPHILS % 0.6 % (0.0-2.0); EOSINOPHILS % 7.2 % (0.0-5.0); HEMATOCRIT. 26.5 % (36.0-48.0); HEMOGLOBIN. 8.7 g/dL (12.0-16.0); LYMPHOCYTES % 17.6 % (20.0-50.0); MEAN CORPUSCULAR HEMOGLOBIN 27.8 pg (28.0-32.0); MEAN PLATELET VOLUME 7.2 fl (7.4-10.4); MONOCYTES % 12.4 % (2.0-8.0); NEUTROPHILS % 62.2 % (40.0-76.0); PLATELET 288 x1000/uL (130-400); RED BLOOD CELL COUNT 3.11 mill/uL (4.2-5.4); RED CELL DISTRIBUTION WIDTH 16.6 % (11.6-14.6)
[2021-06-07 05:49] LABS: CHLORIDE 117 mEq/L (98-107)
[2021-06-07 05:56] LABS: PHOSPHORUS 3.1 mg/dL (2.5-4.9)
[2021-06-07] MEDS: BLOOD SUGAR DIAGNOSTIC STRIP TEST SCH ×4 (06:23→20:55)
[2021-06-07] MEDS: ATOVAQUONE 750MG/5ML ORAL SYRINGE PO SCH (06:27)
[2021-06-07] MEDS: MEROPENEM 1,000 MG in SODIUM CHLORIDE 0.9% 100 ML IV SCH ×3 (06:27→22:41)
[2021-06-07] MEDS: MULTIVITAMINS,THER W-MINERALS TABLET PO SCH (08:02)
[2021-06-07] MEDS: MIDODRINE HCL 5MG TABLET PO SCH ×3 (08:02→18:33)
[2021-06-07] MEDS: ENOXAPARIN 40MG/0.4ML SYR SUBCUT SCH (08:02)
[2021-06-07] MEDS: MAGNESIUM OXIDE 400MG TABLET PO SCH (08:11)
[2021-06-07] MEDS: LACTULOSE 20G/30ML UDC PO SCH ×2 (08:11→18:32)
[2021-06-07] MEDS ORDERED: HYDROMORPHONE HCL/PF 2MG/ML CPJ IM PRN (08:30)
[2021-06-07] MEDS: HYDROCODONE/APAP 7.5/325MG 1 TAB TABLET PO PRN ×2 (08:33→20:55)
[2021-06-07] MEDS: SODIUM HYPOCHLORITE 0.125% 473ML SOLUTION TOP SCH (08:41)
[2021-06-07] MEDS: PENTOXIFYLLINE 400MG TABLET PO SCH (08:52)
[2021-06-07] MEDS: RIFAXIMIN 550 MG TABLET PO SCH ×2 (08:52→20:54)
[2021-06-07] MEDS: HYDROMORPHONE HCL/PF 2MG/ML CPJ IV PRN ×3 (08:52→22:21)
[2021-06-07 13:06] LABS: *HIV-1 RNA BY PCR 40560 copies/mL (.)
[2021-06-08] VITALS (12 sets, daily range): BP systolic 106–133; BP diastolic 53–89
[2021-06-08] MEDS: HYDROMORPHONE HCL/PF 2MG/ML CPJ IV PRN ×5 (01:49→20:22)
[2021-06-08] MEDS: DIPHENHYDRAMINE 50MG/ML VIAL IV PRN (04:10)
[2021-06-08] MEDS: MEROPENEM 1,000 MG in SODIUM CHLORIDE 0.9% 100 ML IV SCH ×3 (06:29→21:46)
[2021-06-08] MEDS: BLOOD SUGAR DIAGNOSTIC STRIP TEST SCH ×4 (06:29→20:22)
[2021-06-08 06:58] LABS: HEMATOCRIT. 25.4 % (36.0-48.0); HEMOGLOBIN. 8.4 g/dL (12.0-16.0); MEAN CORPUSCULAR HEMOGLOBIN 28.3 pg (28.0-32.0); MEAN CORPUSCULAR VOLUME 85.8 fL (81.0-99.0); MEAN PLATELET VOLUME 7.6 fl (7.4-10.4); PLATELET 317 x1000/uL (130-400); RED BLOOD CELL COUNT 2.96 mill/uL (4.2-5.4); RED CELL DISTRIBUTION WIDTH 16.4 % (11.6-14.6)
[2021-06-08 07:11] LABS: CHLORIDE 116 mEq/L (98-107)
[2021-06-08] MEDS ORDERED: HYDROCODONE/APAP 7.5/325MG 1 TAB TABLET PO PRN (08:45)
[2021-06-08] MEDS: SODIUM HYPOCHLORITE 0.125% 473ML SOLUTION TOP SCH (09:00)
[2021-06-08] MEDS: LACTULOSE 20G/30ML UDC PO SCH ×2 (09:02→16:03)
[2021-06-08] MEDS: MIDODRINE HCL 5MG TABLET PO SCH ×3 (09:04→16:03)
[2021-06-08] MEDS: PENTOXIFYLLINE 400MG TABLET PO SCH (09:04)
[2021-06-08] MEDS: ATOVAQUONE 750MG/5ML ORAL SYRINGE PO SCH (09:05)
[2021-06-08] MEDS: ENOXAPARIN 30MG/0.3ML SYR SUBCUT SCH ×2 (09:05→20:22)
[2021-06-08] MEDS: MULTIVITAMINS,THER W-MINERALS TABLET PO SCH (09:05)
[2021-06-08 09:44] LABS: PLATELET ESTIMATE NORMAL
[2021-06-08] MEDS: FAMOTIDINE 20MG TABLET PO SCH ×2 (12:49→20:21)
[2021-06-08] MEDS: HYDROCODONE/ACETAMINOPHEN 10/325MG TABLET PO PRN (14:53)
[2021-06-08] MEDS: GABAPENTIN 100MG CAPSULE PO SCH (21:46)
[2021-06-08] MEDS: OXYCODONE HCL 10MG TABLET SR 12HR PO SCH (21:47)
[2021-06-09] VITALS (12 sets, daily range): BP systolic 100–145; BP diastolic 29–98
[2021-06-09] MEDS: HYDROMORPHONE HCL/PF 2MG/ML CPJ IV PRN ×5 (01:27→21:29)
[2021-06-09] MEDS: OXYCODONE HCL 10MG TABLET SR 12HR PO SCH ×3 (04:02→19:47)
[2021-06-09] MEDS: GABAPENTIN 100MG CAPSULE PO SCH ×3 (05:39→21:46)
[2021-06-09] MEDS: MEROPENEM 1,000 MG in SODIUM CHLORIDE 0.9% 100 ML IV SCH ×3 (05:39→21:49)
[2021-06-09] MEDS: BLOOD SUGAR DIAGNOSTIC STRIP TEST SCH ×4 (06:50→21:16)
[2021-06-09] MEDS: MIDODRINE HCL 5MG TABLET PO SCH ×3 (08:36→17:10)
[2021-06-09] MEDS: ATOVAQUONE 750MG/5ML ORAL SYRINGE PO SCH (08:36)
[2021-06-09] MEDS: MULTIVITAMINS,THER W-MINERALS TABLET PO SCH (08:36)
[2021-06-09] MEDS: FAMOTIDINE 20MG TABLET PO SCH ×2 (08:36→21:17)
[2021-06-09] MEDS: LACTULOSE 20G/30ML UDC PO SCH ×2 (08:37→17:00)
[2021-06-09] MEDS: ENOXAPARIN 30MG/0.3ML SYR SUBCUT SCH ×2 (08:40→21:17)
[2021-06-09] MEDS: SODIUM HYPOCHLORITE 0.125% 473ML SOLUTION TOP SCH (08:44)
[2021-06-09] MEDS ORDERED: ATAZANAVIR SULFATE 150MG CAPSULE PO SCH (09:00)
[2021-06-09] MEDS ORDERED: TENOFOVIR 300MG TABLET PO SCH (09:00)
[2021-06-09] MEDS ORDERED: RITONAVIR 100 MG TABLET PO SCH (09:00)
[2021-06-09] MEDS ORDERED: EMTRICITABINE 200MG CAPSULE PO SCH (09:00)
[2021-06-09] MEDS: PENTOXIFYLLINE 400MG TABLET PO SCH (12:47)
[2021-06-10] VITALS (12 sets, daily range): BP systolic 78–141; BP diastolic 52–104
[2021-06-10] MEDS: OXYCODONE HCL 10MG TABLET SR 12HR PO SCH ×3 (03:43→21:44)
[2021-06-10] MEDS: HYDROMORPHONE HCL/PF 2MG/ML CPJ IV PRN ×4 (03:45→18:01)
[2021-06-10] MEDS: GABAPENTIN 100MG CAPSULE PO SCH ×3 (05:54→21:44)
[2021-06-10 06:35] LABS: HEMATOCRIT. 23.1 % (36.0-48.0); HEMOGLOBIN. 7.6 g/dL (12.0-16.0); MEAN CORPUSCULAR HEMOGLOBIN 28.5 pg (28.0-32.0); MEAN CORPUSCULAR VOLUME 86.7 fL (81.0-99.0); PLATELET 269 x1000/uL (130-400); RED BLOOD CELL COUNT 2.66 mill/uL (4.2-5.4); RED CELL DISTRIBUTION WIDTH 16.4 % (11.6-14.6)
[2021-06-10] MEDS: BLOOD SUGAR DIAGNOSTIC STRIP TEST SCH ×4 (07:00→21:44)
[2021-06-10 07:08] LABS: CHLORIDE 119 mEq/L (98-107)
[2021-06-10] MEDS: ATOVAQUONE 750MG/5ML ORAL SYRINGE PO SCH (08:40)
[2021-06-10] MEDS: PENTOXIFYLLINE 400MG TABLET PO SCH (08:41)
[2021-06-10] MEDS: MIDODRINE HCL 5MG TABLET PO SCH ×3 (08:43→17:20)
[2021-06-10] MEDS: MULTIVITAMINS,THER W-MINERALS TABLET PO SCH (08:43)
[2021-06-10] MEDS: FAMOTIDINE 20MG TABLET PO SCH ×2 (08:43→21:43)
[2021-06-10] MEDS: LACTULOSE 20G/30ML UDC PO SCH ×2 (08:44→17:00)
[2021-06-10] MEDS: SODIUM HYPOCHLORITE 0.125% 473ML SOLUTION TOP SCH (08:46)
[2021-06-10] MEDS: ENOXAPARIN 30MG/0.3ML SYR SUBCUT SCH ×2 (08:46→21:45)
[2021-06-10] MEDS ORDERED: POTASSIUM CHLORIDE 20MEQ/PACKET PO NR (09:45)
[2021-06-10] MEDS: LAMOTRIGINE 25MG TABLET PO SCH (13:44)
[2021-06-10] MEDS: CITALOPRAM HYDROBROMIDE 10MG TABLET PO SCH (13:45)
[2021-06-10] MEDS ORDERED: MAGNESIUM 2 G PREMIX 50 ML IV NR (14:00)
[2021-06-10] MEDS: FERROUS SULFATE 325MG TABLET PO SCH (17:16)
[2021-06-10] MEDS: ARIPIPRAZOLE 2MG TABLET PO SCH (17:16)
[2021-06-10 20:34] LABS: PLATELET ESTIMATE NORMAL
[2021-06-11] VITALS (12 sets, daily range): BP systolic 100–147; BP diastolic 63–98
[2021-06-11] MEDS: HYDROMORPHONE HCL/PF 2MG/ML CPJ IV PRN ×2 (03:00→15:47)
[2021-06-11] MEDS: OXYCODONE HCL 10MG TABLET SR 12HR PO SCH ×3 (04:23→21:37)
[2021-06-11] MEDS: GABAPENTIN 100MG CAPSULE PO SCH ×3 (05:49→21:37)
[2021-06-11] MEDS: BLOOD SUGAR DIAGNOSTIC STRIP TEST SCH ×5 (06:53→21:00)
[2021-06-11 06:56] LABS: BASOPHILS % 0.2 % (0.0-2.0); EOSINOPHILS % 6.4 % (0.0-5.0); HEMATOCRIT. 23.6 % (36.0-48.0); HEMOGLOBIN. 7.6 g/dL (12.0-16.0); LYMPHOCYTES % 20.4 % (20.0-50.0); MEAN CORPUSCULAR HEMOGLOBIN 28.6 pg (28.0-32.0); MEAN CORPUSCULAR VOLUME 88.3 fL (81.0-99.0); MEAN PLATELET VOLUME 7.9 fl (7.4-10.4); MONOCYTES % 9.2 % (2.0-8.0); NEUTROPHILS % 63.8 % (40.0-76.0); PLATELET 291 x1000/uL (130-400); RED BLOOD CELL COUNT 2.67 mill/uL (4.2-5.4); RED CELL DISTRIBUTION WIDTH 16.2 % (11.6-14.6)
[2021-06-11 07:03] LABS: CHLORIDE 117 mEq/L (98-107)
[2021-06-11] MEDS: LACTULOSE 20G/30ML UDC PO SCH (09:00)
[2021-06-11] MEDS: SODIUM HYPOCHLORITE 0.125% 473ML SOLUTION TOP SCH (09:00)
[2021-06-11] MEDS: ENOXAPARIN 30MG/0.3ML SYR SUBCUT SCH (09:18)
[2021-06-11] MEDS: PENTOXIFYLLINE 400MG TABLET PO SCH (09:19)
[2021-06-11] MEDS: FERROUS SULFATE 325MG TABLET PO SCH ×3 (09:19→17:46)
[2021-06-11] MEDS: LAMOTRIGINE 25MG TABLET PO SCH (09:19)
[2021-06-11] MEDS: ARIPIPRAZOLE 2MG TABLET PO SCH (09:19)
[2021-06-11] MEDS: CITALOPRAM HYDROBROMIDE 10MG TABLET PO SCH (09:19)
[2021-06-11] MEDS: MULTIVITAMINS,THER W-MINERALS TABLET PO SCH (09:19)
[2021-06-11] MEDS: FAMOTIDINE 20MG TABLET PO SCH ×2 (09:19→21:37)
[2021-06-11] MEDS: MIDODRINE HCL 5MG TABLET PO SCH ×3 (09:21→17:46)
[2021-06-11] MEDS: ATOVAQUONE 750MG/5ML ORAL SYRINGE PO SCH (09:22)
[2021-06-11] MEDS: LORAZEPAM 2MG/ML CPJ IV PRN (10:38)
[2021-06-11] MEDS ORDERED: LACTULOSE 20G/30ML UDC PO SCH (10:45)
[2021-06-11] MEDS ORDERED: LIDOCAINE HCL 1% 10 MG/ML 10ML VIAL ONE (13:12)
[2021-06-11] MEDS ORDERED: LIDOCAINE HCL 1% 20ML VIAL (Pyxis) INJ INFIL SCH (14:00)
[2021-06-12] VITALS: BP 109/66
[2021-06-12] MEDS: HYDROMORPHONE HCL/PF 2MG/ML CPJ IV PRN ×2 (02:53→08:41)
[2021-06-12 04:00] VITALS: BP 111/62
[2021-06-12] MEDS: OXYCODONE HCL 10MG TABLET SR 12HR PO SCH ×3 (05:57→20:55)
[2021-06-12] MEDS: GABAPENTIN 100MG CAPSULE PO SCH ×3 (06:00→22:07)
[2021-06-12] MEDS: BLOOD SUGAR DIAGNOSTIC STRIP TEST SCH ×4 (06:59→20:55)
[2021-06-12 08:00] VITALS: BP 104/63
[2021-06-12] MEDS: FAMOTIDINE 20MG TABLET PO SCH ×2 (08:40→22:07)
[2021-06-12] MEDS: CITALOPRAM HYDROBROMIDE 10MG TABLET PO SCH (08:40)
[2021-06-12] MEDS: FERROUS SULFATE 325MG TABLET PO SCH ×3 (08:40→17:13)
[2021-06-12] MEDS: MULTIVITAMINS,THER W-MINERALS TABLET PO SCH (08:40)
[2021-06-12] MEDS: LACTULOSE 20G/30ML UDC PO SCH (08:40)
[2021-06-12] MEDS: LAMOTRIGINE 25MG TABLET PO SCH (08:40)
[2021-06-12] MEDS: ARIPIPRAZOLE 2MG TABLET PO SCH (08:40)
[2021-06-12] MEDS: MIDODRINE HCL 5MG TABLET PO SCH ×3 (08:40→17:13)
[2021-06-12] MEDS: PENTOXIFYLLINE 400MG TABLET PO SCH (08:40)
[2021-06-12 10:00] LABS: BASOPHILS % 0.3 % (0.0-2.0); EOSINOPHILS % 5.1 % (0.0-5.0); HEMATOCRIT. 23.2 % (36.0-48.0); HEMOGLOBIN. 7.6 g/dL (12.0-16.0); LYMPHOCYTES % 15.7 % (20.0-50.0); MEAN CORPUSCULAR HEMOGLOBIN 28.3 pg (28.0-32.0); MEAN CORPUSCULAR VOLUME 86.3 fL (81.0-99.0); MEAN PLATELET VOLUME 8.1 fl (7.4-10.4); MONOCYTES % 6.3 % (2.0-8.0); NEUTROPHILS % 72.6 % (40.0-76.0); PLATELET 362 x1000/uL (130-400); RED BLOOD CELL COUNT 2.69 mill/uL (4.2-5.4); RED CELL DISTRIBUTION WIDTH 15.9 % (11.6-14.6)
[2021-06-12 10:05] LABS: CHLORIDE 117 mEq/L (98-107)
[2021-06-12 12:00] VITALS: BP 110/67
[2021-06-12] MEDS: POTASSIUM CHLORIDE 20MEQ TABLET SR PO SCH (12:44)
[2021-06-12] MEDS ORDERED: MAGNESIUM 2 G PREMIX 50 ML IV NR (13:00)
[2021-06-12 16:00] VITALS: BP 102/57
[2021-06-12] MEDS: HYDROMORPHONE HCL 2MG TABLET PO PRN ×2 (17:13→23:57)
[2021-06-12 20:00] VITALS: BP 107/65
[2021-06-12] MEDS: ENOXAPARIN 30MG/0.3ML SYR SUBCUT SCH (22:07)
[2021-06-12] MEDS: ACETAMINOPHEN 325MG TABLET PO PRN (23:58)
[2021-06-13] VITALS (7 sets, daily range): BP systolic 91–135; BP diastolic 51–75
[2021-06-13] MEDS: OXYCODONE HCL 10MG TABLET SR 12HR PO SCH ×3 (05:21→22:09)
[2021-06-13] MEDS: GABAPENTIN 100MG CAPSULE PO SCH ×3 (06:47→22:09)
[2021-06-13] MEDS: BLOOD SUGAR DIAGNOSTIC STRIP TEST SCH ×4 (06:53→21:07)
[2021-06-13] MEDS ORDERED: SODIUM CHLORIDE 0.9% 1000ML BAG (SEPSIS BOLUS) IV ONE (07:00)
[2021-06-13 07:52] LABS: BASOPHILS % 0.4 % (0.0-2.0); EOSINOPHILS % 6.1 % (0.0-5.0); HEMATOCRIT. 22.1 % (36.0-48.0); HEMOGLOBIN. 7.2 g/dL (12.0-16.0); MEAN CORPUSCULAR HEMOGLOBIN 28.4 pg (28.0-32.0); MEAN CORPUSCULAR VOLUME 86.5 fL (81.0-99.0); MEAN PLATELET VOLUME 8.8 fl (7.4-10.4); MONOCYTES % 9.9 % (2.0-8.0); NEUTROPHILS % 60.6 % (40.0-76.0); PLATELET 391 x1000/uL (130-400); RED BLOOD CELL COUNT 2.55 mill/uL (4.2-5.4); RED CELL DISTRIBUTION WIDTH 16.1 % (11.6-14.6)
[2021-06-13 08:03] LABS: CHLORIDE 116 mEq/L (98-107)
[2021-06-13] MEDS: LACTULOSE 20G/30ML UDC PO SCH (09:05)
[2021-06-13] MEDS: ACETAMINOPHEN 325MG TABLET PO PRN (09:05)
[2021-06-13] MEDS: MULTIVITAMINS,THER W-MINERALS TABLET PO SCH (09:05)
[2021-06-13] MEDS: POTASSIUM CHLORIDE 20MEQ TABLET SR PO SCH (09:05)
[2021-06-13] MEDS: CITALOPRAM HYDROBROMIDE 10MG TABLET PO SCH (09:05)
[2021-06-13] MEDS: LAMOTRIGINE 25MG TABLET PO SCH (09:06)
[2021-06-13] MEDS: FAMOTIDINE 20MG TABLET PO SCH ×2 (09:06→22:09)
[2021-06-13] MEDS: MIDODRINE HCL 5MG TABLET PO SCH ×3 (09:06→16:41)
[2021-06-13] MEDS: ENOXAPARIN 30MG/0.3ML SYR SUBCUT SCH ×2 (09:07→22:08)
[2021-06-13] MEDS: PENTOXIFYLLINE 400MG TABLET PO SCH (09:11)
[2021-06-13] MEDS: HYDROCODONE/ACETAMINOPHEN 10/325MG TABLET PO PRN (09:12)
[2021-06-13] MEDS: FERROUS SULFATE 325MG TABLET PO SCH ×3 (09:12→16:58)
[2021-06-13] MEDS: ARIPIPRAZOLE 2MG TABLET PO SCH (09:12)
[2021-06-13] MEDS ORDERED: MAGNESIUM 2 G PREMIX 50 ML IV NR (10:30)
[2021-06-13] MEDS: SODIUM HYPOCHLORITE 0.125% 473ML SOLUTION TOP SCH (12:24)
[2021-06-13] MEDS: HYDROMORPHONE HCL 2MG TABLET PO PRN (20:34)
[2021-06-13] MEDS ORDERED: OXYCODONE HCL 10MG TABLET SR 12HR PO NR (22:00)
[2021-06-14] VITALS (8 sets, daily range): BP systolic 77–138; BP diastolic 41–80
[2021-06-14] MEDS: HYDROMORPHONE HCL 2MG TABLET PO PRN ×4 (01:48→21:23)
[2021-06-14] MEDS: DIPHENHYDRAMINE 50MG/ML VIAL IV PRN ×2 (01:50→06:46)
[2021-06-14] MEDS: ACETAMINOPHEN 325MG TABLET PO PRN ×2 (02:02→05:41)
[2021-06-14 05:47] LABS: CHLORIDE 117 mEq/L (98-107)
[2021-06-14] MEDS: BLOOD SUGAR DIAGNOSTIC STRIP TEST SCH ×4 (06:27→21:17)
[2021-06-14] MEDS: GABAPENTIN 100MG CAPSULE PO SCH ×3 (06:29→21:16)
[2021-06-14 06:37] LABS: BASOPHILS % 0.6 % (0.0-2.0); EOSINOPHILS % 2.4 % (0.0-5.0); HEMATOCRIT. 23.9 % (36.0-48.0); HEMOGLOBIN. 7.7 g/dL (12.0-16.0); LYMPHOCYTES % 12.5 % (20.0-50.0); MEAN CORPUSCULAR HEMOGLOBIN 28.1 pg (28.0-32.0); MEAN CORPUSCULAR VOLUME 87.4 fL (81.0-99.0); MEAN PLATELET VOLUME 8.6 fl (7.4-10.4); MONOCYTES % 4.5 % (2.0-8.0); PLATELET 416 x1000/uL (130-400); RED BLOOD CELL COUNT 2.74 mill/uL (4.2-5.4)
[2021-06-14] MEDS ORDERED: SODIUM CHLORIDE 0.9% 1000ML BAG (SEPSIS BOLUS) IV ONE (07:00)
[2021-06-14] MEDS ORDERED: SODIUM CHLORIDE 0.9% 500 ML IV SCH (07:15)
[2021-06-14] MEDS: LACTULOSE 20G/30ML UDC PO SCH ×2 (09:00→09:29)
[2021-06-14] MEDS: MULTIVITAMINS,THER W-MINERALS TABLET PO SCH (09:28)
[2021-06-14] MEDS: ARIPIPRAZOLE 2MG TABLET PO SCH (09:28)
[2021-06-14] MEDS: CITALOPRAM HYDROBROMIDE 10MG TABLET PO SCH (09:28)
[2021-06-14] MEDS: LAMOTRIGINE 25MG TABLET PO SCH (09:28)
[2021-06-14] MEDS: ATOVAQUONE 750MG/5ML ORAL SYRINGE PO SCH (09:28)
[2021-06-14] MEDS: FERROUS SULFATE 325MG TABLET PO SCH ×3 (09:28→17:04)
[2021-06-14] MEDS: POTASSIUM CHLORIDE 20MEQ TABLET SR PO SCH (09:28)
[2021-06-14] MEDS: FAMOTIDINE 20MG TABLET PO SCH ×2 (09:28→21:17)
[2021-06-14] MEDS: MIDODRINE HCL 5MG TABLET PO SCH ×3 (09:28→17:04)
[2021-06-14] MEDS: ENOXAPARIN 30MG/0.3ML SYR SUBCUT SCH ×2 (09:29→21:17)
[2021-06-14] MEDS: SODIUM HYPOCHLORITE 0.125% 473ML SOLUTION TOP SCH (09:30)
[2021-06-14] MEDS: PENTOXIFYLLINE 400MG TABLET PO SCH (11:24)
[2021-06-14] MEDS ORDERED: LACTATED RINGERS 1,000 ML IV SCH ×2 (13:00)
[2021-06-14] MEDS: MEROPENEM 1,000 MG in SODIUM CHLORIDE 0.9% 100 ML IV SCH ×2 (14:11→21:17)
[2021-06-14] MEDS ORDERED: ARIP2TAB3 PO (16:14)
[2021-06-14] MEDS ORDERED: MERO500V22 IV (16:14)
[2021-06-14] MEDS ORDERED: [UNRECOGNIZED DRUG - OTHER] PO (16:14)
[2021-06-14] MEDS ORDERED: MIDO5TAB4 PO (16:14)
[2021-06-14] MEDS ORDERED: LAM25 PO (16:14)
[2021-06-15] VITALS (7 sets, daily range): BP systolic 92–109; BP diastolic 50–77
[2021-06-15] MEDS: HYDROMORPHONE HCL 2MG TABLET PO PRN ×3 (02:29→16:32)
[2021-06-15] MEDS: BLOOD SUGAR DIAGNOSTIC STRIP TEST SCH ×4 (06:22→20:49)
[2021-06-15] MEDS: MEROPENEM 1,000 MG in SODIUM CHLORIDE 0.9% 100 ML IV SCH ×3 (06:22→20:17)
[2021-06-15] MEDS: GABAPENTIN 100MG CAPSULE PO SCH ×3 (06:22→20:16)
[2021-06-15] MEDS: ATOVAQUONE 750MG/5ML ORAL SYRINGE PO SCH (06:22)
[2021-06-15] MEDS: FERROUS SULFATE 325MG TABLET PO SCH ×3 (06:22→16:57)
[2021-06-15 07:51] LABS: BASOPHILS % 0.1 % (0.0-2.0); EOSINOPHILS % 2.9 % (0.0-5.0); HEMATOCRIT. 22.5 % (36.0-48.0); HEMOGLOBIN. 7.2 g/dL (12.0-16.0); LYMPHOCYTES % 11.3 % (20.0-50.0); MEAN CORPUSCULAR HEMOGLOBIN 27.8 pg (28.0-32.0); MEAN CORPUSCULAR VOLUME 87.6 fL (81.0-99.0); MEAN PLATELET VOLUME 8.6 fl (7.4-10.4); MONOCYTES % 5.1 % (2.0-8.0); NEUTROPHILS % 80.6 % (40.0-76.0); PLATELET 425 x1000/uL (130-400); RED BLOOD CELL COUNT 2.57 mill/uL (4.2-5.4); RED CELL DISTRIBUTION WIDTH 16.2 % (11.6-14.6)
[2021-06-15 07:58] LABS: CHLORIDE 116 mEq/L (98-107)
[2021-06-15] MEDS: POTASSIUM CHLORIDE 20MEQ TABLET SR PO SCH (08:36)
[2021-06-15] MEDS: MULTIVITAMINS,THER W-MINERALS TABLET PO SCH (08:36)
[2021-06-15] MEDS: PENTOXIFYLLINE 400MG TABLET PO SCH (08:36)
[2021-06-15] MEDS: LACTULOSE 20G/30ML UDC PO SCH (08:36)
[2021-06-15] MEDS: ARIPIPRAZOLE 2MG TABLET PO SCH (08:36)
[2021-06-15] MEDS: LAMOTRIGINE 25MG TABLET PO SCH (08:37)
[2021-06-15] MEDS: MIDODRINE HCL 5MG TABLET PO SCH ×3 (08:37→16:32)
[2021-06-15] MEDS: CITALOPRAM HYDROBROMIDE 10MG TABLET PO SCH (08:37)
[2021-06-15] MEDS: ENOXAPARIN 30MG/0.3ML SYR SUBCUT SCH ×2 (08:38→20:17)
[2021-06-15] MEDS: FAMOTIDINE 20MG TABLET PO SCH ×2 (08:38→20:13)
[2021-06-15] MEDS: ACETAMINOPHEN 325MG TABLET PO PRN (08:46)
[2021-06-15] MEDS: SODIUM HYPOCHLORITE 0.125% 473ML SOLUTION TOP SCH (08:49)
[2021-06-15] MEDS: OXYCODONE HCL 10MG TABLET SR 12HR PO SCH ×2 (10:45→20:16)
[2021-06-15] MEDS: DIPHENHYDRAMINE 50MG/ML VIAL IV PRN (11:55)
[2021-06-15] MEDS: HYDROCODONE/ACETAMINOPHEN 5/325MG TABLET PO PRN (11:56)
[2021-06-15] MEDS: LINEZOLID 600MG TABLET PO SCH (20:50)
[2021-06-16] VITALS (7 sets, daily range): BP systolic 66–164; BP diastolic 40–114
[2021-06-16] MEDS: HYDROCODONE/ACETAMINOPHEN 5/325MG TABLET PO PRN (00:41)
[2021-06-16] MEDS: LORAZEPAM 2MG/ML CPJ IV PRN ×2 (03:40→09:09)
[2021-06-16] MEDS: GABAPENTIN 100MG CAPSULE PO SCH ×3 (05:25→20:59)
[2021-06-16] MEDS: ACETAMINOPHEN 325MG TABLET PO PRN ×2 (05:25→09:09)
[2021-06-16] MEDS: MEROPENEM 1,000 MG in SODIUM CHLORIDE 0.9% 100 ML IV SCH ×3 (05:26→20:59)
[2021-06-16] MEDS: OXYCODONE HCL 10MG TABLET SR 12HR PO SCH ×3 (06:06→22:00)
[2021-06-16] MEDS: BLOOD SUGAR DIAGNOSTIC STRIP TEST SCH ×4 (06:10→21:00)
[2021-06-16 06:42] LABS: BASOPHILS % 0.3 % (0.0-2.0); HEMATOCRIT. 27.4 % (36.0-48.0); HEMOGLOBIN. 8.7 g/dL (12.0-16.0); LYMPHOCYTES % 19.8 % (20.0-50.0); MEAN CORPUSCULAR HEMOGLOBIN 27.5 pg (28.0-32.0); MEAN CORPUSCULAR VOLUME 86.8 fL (81.0-99.0); MEAN PLATELET VOLUME 8.5 fl (7.4-10.4); MONOCYTES % 3.1 % (2.0-8.0); NEUTROPHILS % 69.8 % (40.0-76.0); PLATELET 396 x1000/uL (130-400); RED BLOOD CELL COUNT 3.16 mill/uL (4.2-5.4); RED CELL DISTRIBUTION WIDTH 16.1 % (11.6-14.6)
[2021-06-16 06:59] LABS: CHLORIDE 113 mEq/L (98-107)
[2021-06-16] MEDS: LINEZOLID 600MG TABLET PO SCH (08:46)
[2021-06-16] MEDS: ATOVAQUONE 750MG/5ML ORAL SYRINGE PO SCH (08:47)
[2021-06-16] MEDS: LAMOTRIGINE 25MG TABLET PO SCH (08:47)
[2021-06-16] MEDS: MULTIVITAMINS,THER W-MINERALS TABLET PO SCH (08:47)
[2021-06-16] MEDS: FERROUS SULFATE 325MG TABLET PO SCH ×3 (08:47→19:03)
[2021-06-16] MEDS: FAMOTIDINE 20MG TABLET PO SCH ×2 (08:49→20:59)
[2021-06-16] MEDS: SODIUM HYPOCHLORITE 0.125% 473ML SOLUTION TOP SCH (09:00)
[2021-06-16] MEDS: CITALOPRAM HYDROBROMIDE 10MG TABLET PO SCH (09:00)
[2021-06-16] MEDS: ARIPIPRAZOLE 2MG TABLET PO SCH (09:00)
[2021-06-16] MEDS: LACTULOSE 20G/30ML UDC PO SCH (09:00)
[2021-06-16] MEDS: ENOXAPARIN 30MG/0.3ML SYR SUBCUT SCH ×2 (09:20→21:00)
[2021-06-16] MEDS: MIDODRINE HCL 5MG TABLET PO SCH ×3 (09:20→19:02)
[2021-06-16] MEDS: POTASSIUM CHLORIDE 20MEQ TABLET SR PO SCH (09:20)
[2021-06-16] MEDS: PENTOXIFYLLINE 400MG TABLET PO SCH (14:30)
[2021-06-16] MEDS: HYDROMORPHONE HCL 2MG TABLET PO PRN (14:40)
[2021-06-17] VITALS (7 sets, daily range): BP systolic 92–110; BP diastolic 50–66
[2021-06-17] MEDS: OXYCODONE HCL 10MG TABLET SR 12HR PO SCH ×4 (05:33→22:00)
[2021-06-17] MEDS: MEROPENEM 1,000 MG in SODIUM CHLORIDE 0.9% 100 ML IV SCH ×3 (05:33→22:15)
[2021-06-17] MEDS: GABAPENTIN 100MG CAPSULE PO SCH ×3 (05:33→22:16)
[2021-06-17] MEDS: BLOOD SUGAR DIAGNOSTIC STRIP TEST SCH ×4 (06:49→21:00)
[2021-06-17 06:58] LABS: BASOPHILS % 0.4 % (0.0-2.0); EOSINOPHILS % 0.6 % (0.0-5.0); HEMATOCRIT. 23.6 % (36.0-48.0); HEMOGLOBIN. 7.3 g/dL (12.0-16.0); LYMPHOCYTES % 9.9 % (20.0-50.0); MEAN CORPUSCULAR HEMOGLOBIN 27.7 pg (28.0-32.0); MEAN CORPUSCULAR VOLUME 89.8 fL (81.0-99.0); MEAN PLATELET VOLUME 8.8 fl (7.4-10.4); MONOCYTES % 3.2 % (2.0-8.0); NEUTROPHILS % 85.9 % (40.0-76.0); PLATELET 379 x1000/uL (130-400); RED BLOOD CELL COUNT 2.63 mill/uL (4.2-5.4); RED CELL DISTRIBUTION WIDTH 16.5 % (11.6-14.6)
[2021-06-17] MEDS: MIDODRINE HCL 5MG TABLET PO SCH ×3 (08:20→16:30)
[2021-06-17] MEDS: CITALOPRAM HYDROBROMIDE 10MG TABLET PO SCH (08:22)
[2021-06-17] MEDS: LACTULOSE 20G/30ML UDC PO SCH ×2 (08:22→08:33)
[2021-06-17] MEDS: FERROUS SULFATE 325MG TABLET PO SCH ×3 (08:22→16:53)
[2021-06-17] MEDS: ARIPIPRAZOLE 2MG TABLET PO SCH (08:22)
[2021-06-17] MEDS: FAMOTIDINE 20MG TABLET PO SCH ×2 (08:22→22:16)
[2021-06-17] MEDS: PENTOXIFYLLINE 400MG TABLET PO SCH (08:22)
[2021-06-17] MEDS: ATOVAQUONE 750MG/5ML ORAL SYRINGE PO SCH (08:22)
[2021-06-17] MEDS: MULTIVITAMINS,THER W-MINERALS TABLET PO SCH (08:22)
[2021-06-17] MEDS: LAMOTRIGINE 25MG TABLET PO SCH (08:22)
[2021-06-17] MEDS: POTASSIUM CHLORIDE 20MEQ TABLET SR PO SCH (08:22)
[2021-06-17] MEDS: SODIUM HYPOCHLORITE 0.125% 473ML SOLUTION TOP SCH (08:23)
[2021-06-17] MEDS: ACETAMINOPHEN 325MG TABLET PO PRN (08:24)
[2021-06-17] MEDS: ENOXAPARIN 30MG/0.3ML SYR SUBCUT SCH (08:24)
[2021-06-17] MEDS ORDERED: HYDROCODONE/ACETAMINOPHEN 5/325MG TABLET PO PRN (10:15)
[2021-06-17] MEDS ORDERED: HYDROMORPHONE HCL 4MG TABLET PO PRN (10:15)
[2021-06-17] MEDS ORDERED: SODIUM CHLORIDE 0.9% 1,000 ML IV SCH (10:30)
[2021-06-17] MEDS: DIPHENHYDRAMINE 50MG/ML VIAL IV PRN (12:21)
[2021-06-17] MEDS: MAGNESIUM OXIDE 400MG TABLET PO SCH (16:29)
[2021-06-18] VITALS: BP 108/60
[2021-06-18] MEDS: DIPHENHYDRAMINE 50MG/ML VIAL IV PRN ×2 (01:06→06:32)
[2021-06-18 04:00] VITALS: BP 114/54
[2021-06-18] MEDS: GABAPENTIN 100MG CAPSULE PO SCH (05:41)
[2021-06-18] MEDS: BLOOD SUGAR DIAGNOSTIC STRIP TEST SCH (05:41)
[2021-06-18] MEDS: OXYCODONE HCL 10MG TABLET SR 12HR PO SCH (05:41)
[2021-06-18] MEDS: MEROPENEM 1,000 MG in SODIUM CHLORIDE 0.9% 100 ML IV SCH (05:46)
[2021-06-18] MEDS: ATOVAQUONE 750MG/5ML ORAL SYRINGE PO SCH (07:40)
[2021-06-18 08:00] VITALS: BP 91/69
[2021-06-18] MEDS: LACTULOSE 20G/30ML UDC PO SCH (09:00)
[2021-06-18] MEDS: MAGNESIUM OXIDE 400MG TABLET PO SCH (09:14)
[2021-06-18] MEDS: MULTIVITAMINS,THER W-MINERALS TABLET PO SCH (09:15)
[2021-06-18] MEDS: LAMOTRIGINE 25MG TABLET PO SCH (09:15)
[2021-06-18] MEDS: PENTOXIFYLLINE 400MG TABLET PO SCH (09:15)
[2021-06-18] MEDS: MIDODRINE HCL 5MG TABLET PO SCH (09:15)
[2021-06-18] MEDS: FAMOTIDINE 20MG TABLET PO SCH (09:16)
[2021-06-18] MEDS: CITALOPRAM HYDROBROMIDE 10MG TABLET PO SCH (09:16)
[2021-06-18] MEDS: FERROUS SULFATE 325MG TABLET PO SCH (09:16)
[2021-06-18] MEDS: ARIPIPRAZOLE 2MG TABLET PO SCH (09:16)
[2021-06-18 11:30] VITALS: BP 107/70
== END 2021-06-18 11:35 | DRG 974 ==
LOC: ER 12:56 → 6WST 15:19 → ENRESERV 22:51 → MICUSO 06-02 08:42 → 3WST 06-07 14:15 → 8WST 06-11 16:54
PROVIDERS: ADMIT Internal Medicine; ATTEND Internal Medicine
PROC: 05HY33Z Insertion of Infusion Device into Upper Vein, Percutaneous Approach (ICD-10-PCS; principal; 2021-06-03)
PROC: B54MZZA Ultrasonography of Right Upper Extremity Veins, Guidance (ICD-10-PCS; 2021-06-03)
PROC: 02HV33Z Insertion of Infusion Device into Superior Vena Cava, Percutaneous Approach (ICD-10-PCS; 2021-06-11)
PROC: B548ZZA Ultrasonography of Superior Vena Cava, Guidance (ICD-10-PCS; 2021-06-11)
DX: A41.51 Sepsis due to Escherichia coli [E. coli] (principal); G92.8 Other toxic encephalopathy; B20 Human immunodeficiency virus [HIV] disease; R65.21 Severe sepsis with septic shock; N17.9 Acute kidney failure, unspecified; E87.2 Acidosis; E44.0 Moderate protein-calorie malnutrition; E72.20 Disorder of urea cycle metabolism, unspecified; L03.115 Cellulitis of right lower limb; L03.116 Cellulitis of left lower limb; L97.919 Non-pressure chronic ulcer of unspecified part of right lower leg with unspecified severity; L97.929 Non-pressure chronic ulcer of unspecified part of left lower leg with unspecified severity; N39.0 Urinary tract infection, site not specified; Z16.12 Extended spectrum beta lactamase (ESBL) resistance; E16.2 Hypoglycemia, unspecified; D64.9 Anemia, unspecified; N18.9 Chronic kidney disease, unspecified; D50.9 Iron deficiency anemia, unspecified; E83.42 Hypomagnesemia; E87.6 Hypokalemia; F43.10 Post-traumatic stress disorder, unspecified; E66.9 Obesity, unspecified; E86.9 Volume depletion, unspecified; F10.20 Alcohol dependence, uncomplicated; F14.10 Cocaine abuse, uncomplicated; I51.7 Cardiomegaly; J44.9 Chronic obstructive pulmonary disease, unspecified; K76.0 Fatty (change of) liver, not elsewhere classified; M19.90 Unspecified osteoarthritis, unspecified site; A41.81 Sepsis due to Enterococcus; F41.9 Anxiety disorder, unspecified; K21.9 Gastro-esophageal reflux disease without esophagitis; I73.9 Peripheral vascular disease, unspecified; I12.9 Hypertensive chronic kidney disease with stage 1 through stage 4 chronic kidney disease, or unspecified chronic kidney disease; Z20.822 Contact with and (suspected) exposure to COVID-19; I87.8 Other specified disorders of veins; K83.8 Other specified diseases of biliary tract; F11.10 Opioid abuse, uncomplicated; Z86.711 Personal history of pulmonary embolism; Z86.718 Personal history of other venous thrombosis and embolism; Z99.3 Dependence on wheelchair; Z88.1 Allergy status to other antibiotic agents; Z88.8 Allergy status to other drugs, medicaments and biological substances; Z91.09 Other allergy status, other than to drugs and biological substances; Z79.899 Other long term (current) drug therapy; Z79.1 Long term (current) use of non-steroidal anti-inflammatories (NSAID); Z79.84 Long term (current) use of oral hypoglycemic drugs; Z68.37 Body mass index [BMI] 37.0-37.9, adult; R59.0 Localized enlarged lymph nodes
CPT/HCPCS: 36415; 36600; 71045; 74181; 76700; 76937; 80048; 80053; 80076; 80202; 80305; 81003; 82140; 82375; 82533; 82550; 82553; 82607; 82728; 82746; 82805; 82962; 83540; 83550; 83605; 83735; 84100; 84132; 84145; 84443; 84484; 85025; 86038; 86160; 86359; 86360; 86705; 86709; 86803; 86850; 86900; 87077; 87186; 87340; 87426; 87493; 87536; 93005; 93306; 93923; 93970; 99291; A6261; C1725; J0692; J1170; J1200; J1650; J1885; J2060; J2185; J2270; J2370; J2405; J3370; J3475; J3480; J3490; J7030; J7040; J7042; J7050; J7060; J7070